=== PATIENT | female | born 1985 | race Caucasian/White ===

== ENCOUNTER 2021-04-09 06:46 | Emergency (ER) | payer BC ==
[~2021-04-09] VITALS: Ht 175.3 cm; Wt 76.4 kg
[2021-04-09 06:54] VITALS: Ht 175.3 cm; Wt 76.4 kg
[2021-04-09] MEDS ORDERED: [UNRECOGNIZED DRUG - REMARK] (06:56)
[2021-04-09 07:05] VITALS: BP 120/70
[2021-04-09] MEDS ORDERED: HYDROCODONE-AC1 EAC2 PO (07:30)
[2021-04-09] MEDS ORDERED: CLEOCIN HCL300 MG PO (07:30)
== END 2021-04-09 08:10 | disposition home or self-care (01) ==
LOC: D.ER 06:46
DX: K02.9 Dental caries, unspecified (principal); K04.7 Periapical abscess without sinus